=== PATIENT | female | born 1990 | race African-American/Black ===

== ENCOUNTER 2019-03-02 11:50 | Emergency (ER) | payer SELFPAY ==
[~2019-03-02] VITALS: Ht 154.9 cm; Wt 55.0 kg
[2019-03-02 13:33] LABS: BASOPHILS % 0.5 % (0.0-2.0); EOSINOPHILS % 3.7 % (0.0-5.0); HEMATOCRIT. 30.1 % (36.0-48.0); HEMOGLOBIN. 10.1 g/dL (12.0-16.0); LYMPHOCYTES % 18.4 % (20.0-50.0); MEAN CORPUSCULAR HEMOGLOBIN 29.2 pg (28.0-32.0); MEAN CORPUSCULAR VOLUME 86.7 fL (81.0-99.0); MEAN PLATELET VOLUME 7.7 fl (7.4-10.4); MONOCYTES % 7.9 % (2.0-8.0); NEUTROPHILS % 69.5 % (40.0-76.0); PLATELET 297 x1000/uL (130-400); RED BLOOD CELL COUNT 3.47 mill/uL (4.2-5.4); RED CELL DISTRIBUTION WIDTH 15.3 % (11.6-14.6)
[2019-03-02 13:38] LABS: CHLORIDE 107 mEq/L (98-107)
[2019-03-02 14:06] LABS: B-HCG QUANTITATIVE 86444 mIU/mL (<3)
[2019-03-02 15:12] VITALS: BP 113/70
== END 2019-03-02 15:37 | disposition home or self-care (01) ==
LOC: ER 11:50
DX: O20.0 Threatened abortion (principal); Z3A.12 12 weeks gestation of pregnancy
CPT/HCPCS: 36415; 76801; 84702; 86850; 86900; 99284